=== PATIENT | female | born 1965 | race Caucasian/White ===

== ENCOUNTER 2024-12-31 17:39 | Emergency (ER) | payer OTHER ==
[~2024-12-31] VITALS: Ht 154.9 cm; Wt 66.7 kg
[2024-12-31 18:24] LABS: BASO # 0.1 10^3/uL (0.0-0.2); BASO % 0.8 % (0.0-1.0); EOS # 0.2 10^3/uL (0.0-0.5); EOS % 1.7 % (0.0-3.0); LYMPH # 3.7 10^3/uL (1.5-5.0); LYMPH % 29.6 % (24.0-44.0); MONO # 0.9 10^3/uL (0.0-0.8); MONO % 6.8 % (2.0-8.0); NEUTROPHILS # 7.7 10^3/uL (1.5-8.5); NEUTROPHILS % 60.7 % (36.0-66.0); PLATELET COUNT, AUTOMATED 218 10^3/uL (150-450)
[2024-12-31] MEDS: ONDANSETRON 4MG 2ML VIAL IV ONE (18:34)
[2024-12-31 18:49] LABS: CK-MB VALUE MASS 1.1 NG/ML (<3.6)
[2024-12-31 18:52] LABS: ALT/SGPT 24 U/L (7.0-40); AST/SGOT 27 U/L (<34); CALCIUM LEVEL 9.0 MG/DL (8.5-10.1); CARBON DIOXIDE LEVEL 22 MMOL/L (20-31); CHLORIDE LEVEL 106 MMOL/L (98-107); CREATININE FOR GFR 0.71 MG/DL (0.55-1.30); GLOMERULAR FILTRATION RATE > 90.0 (>51); POTASSIUM SERUM 4.0 MMOL/L (3.5-5.1); SODIUM LEVEL 140 MMOL/L (136-145)
[2024-12-31 18:53] LABS: FREE T4 0.92 NG/DL (0.89-1.76)
[2024-12-31 19:02] LABS: CPK CREATINE PHOSPHOKINASE 71 U/L (34-145); MB/CK RELATIVE INDEX 1.54 (< OR =4)
[2024-12-31] MEDS: MAALOX 30 ML SUSP *UDC PO ONE (19:28)
[2024-12-31] MEDS: PANTOPRAZOLE 40MG VIAL IV ONE (19:28)
[2024-12-31] MEDS: SUCRALFATE SUSP 1GM/10ML UD PO ONE (19:28)
[2024-12-31] MEDS ORDERED: ISOVUE-370 76% 100 ML VIAL As Ordered ONE (20:00)
[2024-12-31 20:13] LABS: CK-MB VALUE MASS 1.4 NG/ML (<3.6)
[2024-12-31 20:16] LABS: CPK CREATINE PHOSPHOKINASE 68 U/L (34-145); MB/CK RELATIVE INDEX 2.05 (< OR =4)
[2024-12-31] MEDS: diphenhydrAMINE 50 MG/ML VIAL IV ONE (20:39)
[2024-12-31] MEDS ORDERED: CETI-24 PO (21:29)
[2024-12-31] MEDS ORDERED: FLUTISP NARES (21:29)
[2024-12-31] MEDS ORDERED: LISI40TA10 PO (21:29)
[2024-12-31] MEDS ORDERED: LORA-1041 PO (21:29)
[2024-12-31] MEDS ORDERED: SIMV40TA20 PO (21:29)
[2024-12-31] MEDS ORDERED: DILT240C41 PO (21:29)
[2024-12-31] MEDS ORDERED: DULO1CAP6 PO (21:29)
[2024-12-31] MEDS ORDERED: OXYB5TAB14 PO (21:29)
[2024-12-31] MEDS ORDERED: OMEP-173 PO (21:29)
[2024-12-31] MEDS ORDERED: CYCL-707 PO (21:29)
[2024-12-31] MEDS ORDERED: HOME MED LIST COMPLETE! XX SCH (21:30)
[2024-12-31 21:53] VITALS: BP 138/77; TEMP 97.5; O2SAT 94
== END 2024-12-31 22:01 | disposition home or self-care (01) ==
LOC: M ED 17:39
DX: R07.9 Chest pain, unspecified (principal); I10 Essential (primary) hypertension; K21.9 Gastro-esophageal reflux disease without esophagitis; F17.200 Nicotine dependence, unspecified, uncomplicated; Z88.5 Allergy status to narcotic agent; Z88.8 Allergy status to other drugs, medicaments and biological substances; Z91.048 Other nonmedicinal substance allergy status; Z79.899 Other long term (current) drug therapy
CPT/HCPCS: 71045; 71275; 80048; 80076; 82550; 82553; 83690; 83880; 84439; 84443; 84484; 85025; 85379; 93005; 93041; 94760; 96374; 96375; 99285; J1200; J2405; J2470; J2919; Q9967